=== PATIENT | male | born 2000 | race Caucasian/White ===

== ENCOUNTER 2020-05-11 16:06 | Emergency (ER) | payer OTHER, SELFPAY ==
[~2020-05-11] VITALS: Ht 170.2 cm; Wt 56.5 kg
[2020-05-11 16:53] VITALS: BP 108/61
--- NOTE | 2020-05-11 17:00 | NUR ---
20 Y/O MALE FROM HOME PRESENTS TO ER FOR COVID-19 SWAB, STATES CLOSE CONTACT AT HOME WITH POSITIVE FAMILY MEMBER. ASYMPTOMATIC. VSS
--- NOTE | 2020-05-11 17:25 | NUR ---
COVID-19 SWAB COLLECTED
[2020-05-11 17:33] VITALS: BP 108/61
--- NOTE | 2020-05-11 17:34 | NUR ---
Patient discharged with v/s stable. Written and verbal after care instructions given and explained. Patient verbalized understanding. Ambulatory with steady gait. All questions addressed prior to discharge. Advised to follow up with PMD.
== END 2020-05-11 17:34 | disposition home or self-care (01) ==
LOC: MED 16:06 → EEVIPCON 16:06 → MED 17:34
DX: J06.9 Acute upper respiratory infection, unspecified (principal); Z20.828 Contact with and (suspected) exposure to other viral communicable diseases
CPT/HCPCS: 99283; U0003

== ENCOUNTER 2022-02-06 13:11 | Emergency (ER) | payer OTHER, SELFPAY ==
[~2022-02-06] VITALS: Ht 167.6 cm; Wt 61.2 kg
[2022-02-06 13:16] VITALS: BP 114/75
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
--- NOTE | 2022-02-06 13:41 | NUR ---
DR. KIRKLAND AT PT BEDSIDE FOR FURTHER EVALUATION.
[2022-02-06 14:00] VITALS: BP 114/75
== END 2022-02-06 14:00 | disposition home or self-care (01) ==
LOC: MED 13:11
DX: S01.511A Laceration without foreign body of lip, initial encounter (principal); Y04.2XXA Assault by strike against or bumped into by another person, initial encounter; Y93.66 Activity, soccer; Y92.89 Other specified places as the place of occurrence of the external cause; Y99.8 Other external cause status
CPT/HCPCS: 99281

== ENCOUNTER 2024-05-31 23:14 | Emergency (ER) | payer OTHER ==
[~2024-05-31] VITALS: Ht 170.2 cm; Wt 63.5 kg
[2024-05-31 23:26] VITALS: BP 103/53; PULSE 57; RESP 16; TEMP 98.1; O2SAT 99
[2024-06-01] MEDS: FLUORESCEIN OPTH STRIP 1 MG OP ONE (01:02)
[2024-06-01] MEDS: TETRACAINE HCL/PF 0.5% OPTH 4 ML BTL OP ONE (01:03)
[2024-06-01] MEDS ORDERED: POLY15SO74 RIGHT EYE (01:28)
[2024-06-01 01:33] VITALS: BP 103/53; PULSE 57; RESP 16; TEMP 98.1; O2SAT 99
== END 2024-06-01 01:33 | disposition home or self-care (01) ==
LOC: MED 23:14
DX: H53.141 Visual discomfort, right eye (principal); Z79.899 Other long term (current) drug therapy
CPT/HCPCS: 99283

== ENCOUNTER 2024-08-07 21:25 | Emergency (ER) | payer OTHER ==
[~2024-08-07 21:25] MED LIST: POLY15SO74 RIGHT EYE
== END 2024-08-07 21:41 | disposition left against medical advice (07) ==
LOC: MED 21:25
DX: L73.1 Pseudofolliculitis barbae (principal); Z53.21 Procedure and treatment not carried out due to patient leaving prior to being seen by health care provider